=== PATIENT | female | born 1940 ===

== ENCOUNTER 2017-09-17 07:51 | Outpatient (CLI) | payer MEDICARE ==
--- NOTE | 2017-09-17 08:53 | XRay Report ---
XRAY LEFT KNEE FOUR VIEWS: 09/17/17 07:51:00 CLINICAL: Pain. 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 Widening of the lateral joint space with osteophytes. Patellofemoral joint osteoarthritis with narrowing of the joint space and osteophytes. The medial and patellofemoral joint spaces particularly narrow. No joint effusion. A quadriceps enthesophyte. Normal soft tissues. 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
== END 2017-09-17 07:52 | disposition home or self-care (01) ==
LOC: SPVIMAG 07:51
PROVIDERS: ATTEND Orthopaedic Surgery Sports Medicine
DX: M17.12 Unilateral primary osteoarthritis, left knee (principal)